=== PATIENT | male | born 1960 | race Caucasian/White ===

== ENCOUNTER → 2017-04-29 | Outpatient (CLI) | payer BC, MEDICAID ==
[~2017-04-29] MED LIST: ASPI325T17 PO; DOCU-131 PO; HYDR-3151 PO; LISI-167 PO; METO25TA91 PO; NONE AT THIS TIME; SIMV20TA3 PO
== END | disposition home or self-care (01) ==
LOC: ROC 09:07
PROVIDERS: ATTEND Radiology Radiation Oncology
DX: R22.1 Localized swelling, mass and lump, neck (principal)
CPT/HCPCS: 99213; G0463

== ENCOUNTER → 2017-07-21 | Outpatient (CLI) | payer MEDICAID, OTHER ==
[~2017-07-21] MED LIST changes: +OMNIPAQUE 350 MG/ML, 100ML BOTTLE ONE
== END | disposition home or self-care (01) ==
LOC: CFH 13:24
PROVIDERS: ATTEND Radiology Radiation Oncology
DX: C04.8 Malignant neoplasm of overlapping sites of floor of mouth (principal); M47.896 Other spondylosis, lumbar region; I70.0 Atherosclerosis of aorta; N28.1 Cyst of kidney, acquired
CPT/HCPCS: 74170; Q9967

== ENCOUNTER 2017-09-22 11:53 | Day surgery (SDC) | payer OTHER ==
[2017-09-19 09:48] LABS: BASOPHILS # (AUTO) 0.04 x10^3/uL (0-0.1); BASOPHILS % (AUTO) 1 % (0-1); EOSINOPHILS % (AUTO) 2 % (1-7); LYMPHOCYTES # (AUTO) 0.58 x10^3/uL (1-3.4); LYMPHOCYTES % (AUTO) 12 % (22-44); MD NO; MEAN CORPUSCULAR HEMOGLOBIN 33.3 pg (27.5-34.5); MEAN CORPUSCULAR HGB CONC 34.3 g/dL (33.2-36.2); MEAN PLATELET VOLUME 7.6 fL (7.4-10.4); MONOCYTES # (AUTO) 0.38 x10^3/uL (0.2-0.8); MONOCYTES % (AUTO) 8 % (2-9); NEUTROPHILS # (AUTO) 3.72 x10^3/uL (1.8-6.8); NEUTROPHILS % (AUTO) 77 % (42-75); PLATELET COUNT 228 x10^3/uL (130-400); RED BLOOD COUNT 4.03 x10^6/uL (4.38-5.82); RED CELL DISTRIBUTION WIDTH 14.8 % (9.4-14.8)
[2017-09-19 09:56] LABS: ANION GAP 9 mmol/L (5-15); CALCIUM 8.6 mg/dL (8.5-10.1); CHLORIDE 107 mmol/L (98-107); CREATININE 1.07 mg/dL (0.7-1.3)
[~2017-09-22] VITALS: Ht 185.4 cm; Wt 66.2 kg
[~2017-09-22 11:53] MED LIST changes: -OMNIPAQUE 350 MG/ML, 100ML BOTTLE ONE
[2017-09-22] MEDS ORDERED: FENTANYL PF 100 MCG/2ML ONE (12:20)
[2017-09-22] MEDS ORDERED: FLUMAZENIL 0.1 MG/1 ML, 5ML ONE (12:21)
[2017-09-22] MEDS ORDERED: NITROGLYCERIN 5 MG/ML, 10ML ONE (12:21)
[2017-09-22] MEDS ORDERED: PROTAMINE SULFATE 10 MG/ML, 25ML ONE (12:21)
[2017-09-22] MEDS ORDERED: MIDAZOLAM 1 MG/ML, 5ML ONE (12:21)
[2017-09-22] MEDS ORDERED: HEPARIN 1,000 UNITS/ML, 10ML ONE (12:21)
[2017-09-22] MEDS ORDERED: NALOXONE 1 MG/ML, 2ML ONE (12:21)
[2017-09-22 12:38] VITALS: BP 114/83
[2017-09-22] MEDS ORDERED: D5%-0.45% NACL 1,000 ML IV SCH (13:00)
[2017-09-22] MEDS ORDERED: LIDOCAINE 2%, 20ML ONE (14:18)
== END 2017-09-22 18:35 ==
LOC: OUT 11:53
DX: I70.213 Atherosclerosis of native arteries of extremities with intermittent claudication, bilateral legs (principal); Z72.89 Other problems related to lifestyle; Z87.891 Personal history of nicotine dependence
CPT/HCPCS: 36200; 36415; 75630; 80048; 85025; 99156; 99157; C1751; C1769; C1894; J2250; J3010; J3490; 75625; 75716; J1644; J2720; J2310